=== PATIENT | male | born 1940 | race Caucasian/White ===

== ENCOUNTER 2016-11-05 06:35 | Emergency (ER) | payer MEDICARE, OTHER ==
[~2016-11-05] VITALS: Ht 170.2 cm; Wt 90.5 kg
[~2016-11-05 06:35] MED LIST: ERYT.5%O LEFT EYE; LISI20 PO
[2016-11-05 06:39] VITALS: BP 147/79; PULSE 57; RESP 16; TEMP 98.3; O2SAT 99
[2016-11-05] MEDS ORDERED: [UNRECOGNIZED DRUG - CODE] PO (07:09)
[2016-11-05] MEDS ORDERED: VITA100021 SL (07:09)
[2016-11-05] MEDS ORDERED: VITA100018 PO (07:09)
[2016-11-05] MEDS ORDERED: CHON250C PO (07:09)
[2016-11-05] MEDS ORDERED: ASPI81CH CHEW (07:09)
[2016-11-05] MEDS ORDERED: ASCO100037 PO (07:09)
[2016-11-05] MEDS ORDERED: LISI40TA PO (07:09)
[2016-11-05] MEDS ORDERED: PYRI100T PO (07:09)
[2016-11-05] MEDS ORDERED: GLUC15009 PO (07:09)
[2016-11-05] MEDS ORDERED: MULT-267 PO (07:09)
[2016-11-05] MEDS ORDERED: FISH13602 PO (07:09)
--- NOTE | 2016-11-05 07:27 | PD ---
HPI Chief Complaint: Musculoskeletal Complaint Time Seen by Provider: 07:14 Travel History International Travel<30 days: No Contact w/Intl Traveler<30days: No Traveled to known affect area: No History of Present Illness HPI This patient complains of chest pain. Location is left lower chest. He's had it every day for a full month. Not exertional. It is not pleuritic. He denies shortness of breath or cough or fever or any specific chest wall injury that he can recall. He has basically ignored it for a month and came in today. Denies history of cardiac or pulmonary disease. Symptoms severity is mild. No alleviating factors. PFSH Past Medical History Cardiovascular Problems: Yes (htn) Diminished Hearing: No Hypertension: Yes Tetanus Vaccination: < 5 Years Past Surgical History Tonsillectomy: Yes Social History Alcohol Use: Yes (daily 1 -2 drinks ) Tobacco Use: No Substance Use: No Allergies-Medications (Allergen,Severity, Reaction): Coded Allergies: No Known Allergies (Unverified , 10/22/13) Reported Meds & Prescriptions Reported Meds & Active Scripts Active Reported Fish Oil Auburn-3 Softgel (Auburn-3S/Dha/Epa/Fish Oil) 1 Each Capsule.dr 1 Tab PO DAILY Biotin 10,000 Mcg Capsule 1 Tab PO DAILY Vitamin C (Ascorbic Acid) 1,000 Mg Tab.chew 1 Tab PO DAILY Chondroitin Sulfate (Chondroitin Sulfate A) 250 Mg Capsule 1,103 Mg PO DAILY Glucosamine 1,500 Mg Tab 1,500 Mg PO DAILY Men's Multi-Vitamin (Multivitamin) 1 Each Tablet 1 Tab PO DAILY Vitamin D3 (Cholecalciferol) 1,000 Unit Tab 1,000 Units PO DAILY Lisinopril 40 Mg Tab 20 Mg PO DAILY Aspirin 81 Mg Chew 81 Mg CHEW DAILY Vitamin B-6 (Pyridoxine HCl) 100 Mg Tab 100 Mg PO DAILY Vitamin B-12 (Cyanocobalamin) 1,000 Mcg Subl 1,000 Mcg SL DAILY Review of Systems General / Constitutional: No: Fever Eyes: No: Visual changes HENT: No: Headaches Cardiovascular: Positive: Chest Pain or Discomfort Respiratory: No: Shortness of Breath Gastrointestinal: No: Abdominal Pain Genitourinary: No: Dysuria Musculoskeletal: No: Pain Skin: No Rash Neurologic: No: Weakness Psychiatric: No: Depression Endocrine: No: Polydipsia Hematologic/Lymphatic: No: Easy Bruising Physical Exam Narrative GENERAL: Well-nourished, well-developed patient in no apparent distress. SKIN: Focused skin assessment reveals no rash and nodules. Skin is Warm and dry. HEAD: Atraumatic. Normocephalic. EYES: Pupils equal and round. No scleral icterus. No injection or drainage. ENT: No nasal bleeding or discharge. Mucous membranes pink and moist. NECK: Trachea midline. No JVD. CARDIOVASCULAR: Regular rate and rhythm. No murmur appreciated. RESPIRATORY: No accessory muscle use. Clear to auscultation. Breath sounds equal bilaterally. GASTROINTESTINAL: Abdomen soft, non-tender, nondistended. Hepatic and splenic margins not palpable. MUSCULOSKELETAL: No obvious deformities. No clubbing. No cyanosis. No edema. No convincing chest wall tenderness. No bruising. NEUROLOGICAL: Awake and alert. No obvious cranial nerve deficits. Motor grossly within normal limits. Normal speech. PSYCHIATRIC: Appropriate mood and affect; insight and judgment normal. Data Data Last Documented VS Vital Signs Date Time Temp Pulse Resp B/P Pulse Ox O2 Delivery O2 Flow Rate FiO2 11/05/16 07:30 95 11/05/16 06:57 16 11/05/16 06:39 98.3 57 147/79 Orders Electrocardiogram (11/05/16 07:21) Basic Metabolic Panel (Bmp) (11/05/16 07:21) Ckmb (Isoenzyme) Profile (11/05/16 07:21) Complete Blood Count With Diff (11/05/16 07:21) Prothrombin Time / Inr (Pt) (11/05/16 07:21) Act Partial Throm Time (Ptt) (11/05/16 07:21) Troponin I (11/05/16 07:21) Chest, Single Ap (11/05/16 07:21) Ecg Monitoring (11/05/16 07:21) Iv Access Insert/Monitor (11/05/16 07:21) Oximetry (11/05/16 07:21) Aspirin (Aspirin) (11/05/16 07:30) Sodium Chloride 0.9% Flush (Ns Flush) (11/05/16 07:30) Labs Laboratory Tests Test 11/05/16 07:29 White Blood Count 5.0 TH/MM3 Red Blood Count 4.16 MIL/MM3 Hemoglobin 13.7 GM/DL Hematocrit 39.8 % Mean Corpuscular Volume 95.7 FL Mean Corpuscular Hemoglobin 32.8 PG Mean Corpuscular Hemoglobin 34.3 % Concent Red Cell Distribution Width 13.1 % Platelet Count 162 TH/MM3 Mean Platelet Volume 8.0 FL Neutrophils (%) (Auto) 58.8 % Lymphocytes (%) (Auto) 22.8 % Monocytes (%) (Auto) 14.0 % Eosinophils (%) (Auto) 4.1 % Basophils (%) (Auto) 0.3 % Neutrophils # (Auto) 3.0 TH/MM3 Lymphocytes # (Auto) 1.1 TH/MM3 Monocytes # (Auto) 0.7 TH/MM3 Eosinophils # (Auto) 0.2 TH/MM3 Basophils # (Auto) 0.0 TH/MM3 CBC Comment DIFF FINAL Differential Comment Prothrombin Time 10.4 SEC Prothromb Time International 0.9 RATIO Ratio Activated Partial 27.9 SEC Thromboplast Time Sodium Level 139 MEQ/L Potassium Level 3.9 MEQ/L Chloride Level 102 MEQ/L Carbon Dioxide Level 29.5 MEQ/L Anion Gap 8 MEQ/L Blood Urea Nitrogen 10 MG/DL Creatinine 0.95 MG/DL Estimat Glomerular Filtration 77 ML/MIN Rate Random Glucose 114 MG/DL Calcium Level 8.3 MG/DL Total Creatine Kinase 43 U/L Troponin I LESS THAN 0.02 NG/ML MDM Medical Decision Making Medical Screen Exam Complete: Yes Emergency Medical Condition: Yes Medical Record Reviewed: Yes Differential Diagnosis Differential diagnosis includes AK, angina, pericarditis, pleurisy, GERD, anxiety. Narrative Course I have reviewed the patient's electronic medical record. IV placed I reviewed the EKG which shows sinus rhythm and no ST elevation I reviewed the chest x-ray is normal Extended cardiac monitoring shows sinus rhythm without ectopy CBC is normal Metabolic profile is normal CK is normal Troponin is normal Coagulation studies are normal I gave him an aspirin This patient has had chest pain every day for a full month. I don't feel he requires emergent hospitalization for it at this point. His workup. Is entirely normal. His symptoms are not exertional. 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 It is worse when he turns his torso in either direction. This suggests musculoskeletal cause. He should call his [facility] today to obtain follow-up and should talk to his [facility] doctor about his chest pain. Should he worsen he should return for reevaluation. Diagnosis Primary Impression: Chest pain in adult Additional Instructions: The patient was advised to follow up with their physician and return if they worsen. Med/Other Pt SpecificInfo: Other Disposition: 01 DISCHARGE HOME Condition: Stable Carlos Lujan MD Nov 05, 2016 07:27
[2016-11-05 07:30] VITALS: O2SAT 95
[2016-11-05] MEDS ORDERED: SODIUM CHLORIDE 0.9% FLUSH 10 ML FLUSH IVF PRN (07:30)
[2016-11-05] MEDS ORDERED: ASPIRIN 325 MG TAB PO ONE (07:30)
[2016-11-05 07:44] LABS: BASOPHIL % 0.3 % (0.0-2.0); EOSINOPHIL # 0.2 TH/MM3 (0-0.4); EOSINOPHIL % 4.1 % (0.0-4.0); HEMATOCRIT 39.8 % (39.0-51.0); HEMO FLAGS DIFF FINAL; LYMPH % 22.8 % (9.0-44.0); LYMPHOCYTE # 1.1 TH/MM3 (1.0-4.8); MEAN CELL VOLUME 95.7 FL (80.0-100.0); MEAN CORPUSCULAR HEMOGLOBIN 32.8 PG (27.0-34.0); MEAN CORPUSCULAR HGB CONC 34.3 % (32.0-36.0); NEUT % 58.8 % (16.0-70.0); PLATELET COUNT 162 TH/MM3 (150-450); RED BLOOD COUNT 4.16 MIL/MM3 (4.50-5.90); RED CELL DISTRIBUTION WIDTH 13.1 % (11.6-17.2)
--- NOTE | 2016-11-05 07:50 | RADRPT ---
EXAM DATE/TIME: 11/05/2016 07:41 [facility] COMPARISON: No previous studies available for comparison. INDICATIONS : Left side chest pain that wraps around to the back, intermittent x 1 month. MEDICAL HISTORY : Hypertension. SURGICAL HISTORY : None. ENCOUNTER: Initial ACUITY: 1 month PAIN SCORE: 1/10 LOCATION: Left chest FINDINGS: A single view of the chest demonstrates the lungs to be symmetrically aerated without evidence of mas s, infiltrate or effusion. The cardiomediastinal contours are unremarkable. Osseous structures are intact. CONCLUSION: No acute disease. Wale Bernal MD FACR on November 05, 2016 at 7:49 Board Certified Radiologist. This report was verified electronically.
[2016-11-05 07:57] LABS: CHLORIDE 102 MEQ/L (98-107); POTASSIUM 3.9 MEQ/L (3.5-5.1); SODIUM (NA) 139 MEQ/L (136-145)
[2016-11-05 08:00] LABS: ANION GAP 8 MEQ/L (5-15); BICARBONATE 29.5 MEQ/L (21.0-32.0); BLOOD UREA NITROGEN 10 MG/DL (7-18)
[2016-11-05 08:04] LABS: GLOMERULAR FILTRATION RATE 77 ML/MIN (>89)
[2016-11-05 08:23] LABS: CREATINE KINASE 43 U/L (39-308)
[2016-11-05 08:24] LABS: APTT (PATIENT) 27.9 SEC (24.3-30.1); INTERNATIONAL NORMALIZED RATIO 0.9 RATIO; PROTHROMBIN TIME - PATIENT 10.4 SEC (9.8-11.6)
[2016-11-05 08:49] VITALS: BP 135/72
--- NOTE | 2016-11-05 13:30 | EKG ---
Date Performed: 11/05/2016 Time Performed: 07:30:52 PTAGE: 76 years EKG: SINUS BRADYCARDIA WITH FIRST DEGREE AV BLOCK INDETERMINATE AXIS RIGHT BUNDLE BRANCH BLOCK A BNORMAL ECG NO PREVIOUS TRACING DOCTOR: Art Garcia Interpretating Date/Time 11/05/2016 13:24:17
== END 2016-11-05 08:54 | disposition home or self-care (01) ==
LOC: PHED 06:35
DX: R07.9 Chest pain, unspecified (principal); I10 Essential (primary) hypertension
CPT/HCPCS: 71010; 80048; 82550; 84484; 85025; 85610; 85730; 93005